=== PATIENT | male | born 1995 | race Caucasian/White ===

== ENCOUNTER 2017-02-04 10:55 | Emergency (ER) | payer OTHER ==
[2017-02-04 11:41] VITALS: BP 145/83
--- NOTE | 2017-02-04 12:18 | UC ---
Abdominal Pain Male HPI - HPI Summary HPI Summary: LLQ ABDOMINAL PAIN X 6 DAYS PAIN RADIATES ACROSS THE ABDOMEN, NO N/V/D/C , NO URINARY SX NO FEVER, NO CHILLS - History of Current Complaint Chief Complaint: UCGI Stated Complaint: LOWER ABDOMINAL PAIN Time Seen by Provider: 02/04/17 11:41 Hx Obtained From: Patient Onset/Duration: Gradual Onset, Lasting Days - 6, Still Present Timing: Constant Severity Initially: Moderate Severity Currently: Moderate Location: Discrete At: LLQ Radiates to: RLQ Character: Cramping Aggravating Factor(s):: Nothing Alleviating Factor(s): Position Associated Signs And Symptoms: Negative: Diaphoresis, Fever, Cough, Chest Pain, Dizzy, Back Pain, Constipation, Blood in Stool, Urinary Symptoms, Decreased Appetite, Nausea, Vomiting, Diarrhea, Penile Discharge - Risk Factors Testicular Torsion: Negative - Allergies/Home Medications Allergies/Adverse Reactions: Allergies Allergy/AdvReac Type Severity Reaction Status Date / Time Amoxicillin Allergy Hives Verified 02/04/17 11:41 Penicillin V Allergy Hives Verified 02/04/17 11:41 Home Medications: Home Medications NK [No Home Medications Reported] 02/04/17 [History Confirmed 02/04/17] PMH/Surg Hx/FS Hx/Imm Hx Previously Healthy: Yes - Surgical History Surgical History: Yes Surgery Procedure, Year, and Place: wisdome teeth - Family History Known Family History: Negative: Diabetes - Social History Alcohol Use: Weekly Substance Use Type: None Smoking Status (MU): Never Smoked Tobacco Review of Systems Constitutional: Negative Skin: Negative Eyes: Negative ENT: Negative Respiratory: Negative Cardiovascular: Negative Gastrointestinal: Abdominal Pain Genitourinary: Negative Motor: Negative Neurovascular: Negative All Other Systems Reviewed And Are Negative: Yes Physical Exam Triage Information Reviewed: Yes Appearance: Well-Appearing, No Pain Distress, Well-Nourished Vital Signs: Initial Vital Signs Temp 97.6 F 02/04/17 11:36 Pulse 66 02/04/17 11:36 Resp 12 02/04/17 11:36 BP 145/83 02/04/17 11:36 Pulse Ox 98 02/04/17 11:36 Eye Exam: Normal Eyes: Positive: Conjunctiva Clear ENT: Positive: Normal ENT inspection, Hearing grossly normal, Pharynx normal Neck exam: Normal Neck: Positive: Supple, Nontender, No Lymphadenopathy Respiratory: Positive: Chest non-tender, Lungs clear, Normal breath sounds Cardiovascular: Positive: RRR, No Murmur, Pulses Normal Abdomen Description: Positive: Soft, Other: - TENDERNESS RLQ AND LLQ. Negative : CVA Tenderness (R), CVA Tenderness (L), Distended, Guarding Bowel Sounds: Positive: Present Musculoskeletal Exam: Normal Skin Exam: Normal Skin: Negative: rashes Abd Pain Male Course/Dx - Differential Dx/Clinical Impression Provider Diagnoses: ABDOMINAL PAIN Discharge - Discharge Plan Condition: Stable Disposition: HOME Patient Education Materials: Acute Abdominal Pain (ED) Referrals: Non Staff,Doctor [Primary Care Provider] - 3 Days Additional Instructions: CONT. WITH REST, INCREASE FLUID, TAKE TYLENOL NEEDED FOR PAIN FOLLOW UP IN NOT BETTER IN 3 DAYS GO TO ED IF INCREASE IN PAIN , FEVER, VOMITING
== END 2017-02-04 12:49 | disposition home or self-care (01) ==
LOC: UCCORT 10:55
DX: R10.32 Left lower quadrant pain (principal); R10.31 Right lower quadrant pain; Z88.0 Allergy status to penicillin
CPT/HCPCS: 81003; 99201; G0463